=== PATIENT | male | born 1990 | race Caucasian/White ===

== ENCOUNTER 2019-01-13 12:05 | Emergency (ER) | payer OTHER ==
[~2019-01-13] VITALS: Ht 193 cm; Wt 95.3 kg
[2019-01-13] MEDS ORDERED: NKM (12:18)
--- NOTE | 2019-01-13 12:20 | NUR ---
ED Nurse Note: pt walked in to ED from work due to palpitation, dehydration and tingling sensation on limbs. per pt, had panic attack before but not bad as now. denies any stress or drug uses. per pt, had couple drinks last night. AAO x4. respirations even and non-labored noted. denies SI/HI. denies hearing voices or seeing things. skin warm to touch. no open wound noted. water provide and pt tolerated oral intake without any difficulty. will wait for the further order.
[2019-01-13 12:26] VITALS: BP 130/72
--- NOTE | 2019-01-13 12:27 | Emergency Room Report ---
History of Present Illness General Chief Complaint: General Complaint Source: Patient Present Illness HPI 28-year-old male presents to the emergency department complaining of feeling lightheaded/palpitations, paresthesias in the bilateral hands as well as rapid breathing acute onset. Patient also states that he has not been sleeping well lately and has been stressed at work. Patient reports history of anxiety however states that the symptoms are not aligned with his previous experiences where he states he has exacerbation of his IBS. He denies chest pain. Reports feeling short of breath. no significant PMHx. Denies night sweats or significant changes in weight. Denies fevers or chills. Denies motor weakness, AMS/LOC. Denies cardiac hx. reports Cardiac problems run in his family. reports he is generally very active. Denies drug use. Allergies: Coded Allergies: No Known Allergies (Unverified , 01/13/19) Patient History Past Medical History: see triage record Past Surgical History: none Pertinent Family History: none Reviewed Nursing Documentation: PMH: Agreed; PSxH: Agreed Nursing Documentation-PMH Past Medical History: No History, Except For Hx Gastrointestinal Problems: Yes - IBS History Of Psychiatric Problem: Yes - Anxiety Review of Systems All Other Systems: negative except mentioned in HPI Physical Exam Vital Signs Date Time Temp Pulse Resp B/P (MAP) Pulse Ox O2 Delivery O2 Flow Rate FiO2 01/13/19 12:15 96.4 85 20 130/72 (91) 99 Room Air Sp02 EP Interpretation: reviewed, normal General Appearance: no apparent distress, alert, GCS 15, non-toxic Head: normocephalic, atraumatic Eyes: bilateral eye normal inspection, bilateral eye PERRL ENT: hearing grossly normal, normal voice Neck: full range of motion Respiratory: chest non-tender, lungs clear, normal breath sounds, no respiratory distress, no wheezing, speaking full sentences Cardiovascular #1: regular rate, rhythm, no edema, normal capillary refill Musculoskeletal: back normal, gait/station normal, normal range of motion, non- tender Neurologic: alert, oriented x3, responsive, motor strength/tone normal, sensory intact, normal gait, speech normal, grossly normal Psychiatric: judgement/insight normal Skin: normal color, no rash, warm/dry, well hydrated Medical Decision Making PA Attestation Dr. Miguel Is my supervising Physician whom patient management has been discussed with. Diagnostic Impression: Primary Impression: Symptomatic bradycardia Additional Impression: Hyperventilation syndrome ER Course 28-year-old male presents to the emergency department complaining of feeling lightheaded/palpitations, paresthesias in the bilateral hands as well as rapid breathing acute onset. Patient also states that he has not been sleeping well lately and has been stressed at work. Patient reports history of anxiety however states that the symptoms are not aligned with his previous experiences where he states he has exacerbation of his IBS. He denies chest pain. Reports feeling short of breath. no significant PMHx. Denies night sweats or significant changes in weight. Denies fevers or chills. Denies motor weakness, AMS/LOC. Denies cardiac hx. reports Cardiac problems run in his family. reports he is generally very active. Denies drug use Ddx considered but are not limited to anxiety, FL, PE, asthma, thyroid storm, Arrhythmia, hyperthyroid, EPS Vital signs: are WNL, pt. is afebrile H&PE are most consistent with Symptomatic Bradycardia ORDERS: -EKG: Bradycardia 46bpm -CBC: wnl -CMP: wnl -TSH/FreeT3/T4: WNL -Troponin: 0.00 UDS: all Negative ED INTERVENTIONS: - 0.5 mg Ativan PO This patient was recommended to be admitted for symptomatic bradycardia however patient did not want to be admitted therefore he requested to be discharged AGAINST MEDICAL ADVICE. 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 DISPOSITION: AMA Per Pt. Request - At this time the patient is requesting to leave AGAINST MEDICAL ADVICE. I believe that this patient has the capacity to make decisions on his own. I discussed with the patient the risks of leaving AMA. Some of these risks include delay in diagnosis and treatment, as well as worsening of symptoms, organ damage, and permanent disability or even . After discussing these risks with the patient. He continues to express his want to leave AGAINST MEDICAL ADVICE. I encouraged the patient to return at any time, and that he will be welcome here in the emergency department to continue medical management. Labs Test 01/13/19 13:45 White Blood Count 7.0 K/UL (4.8-10.8) Red Blood Count 5.25 M/UL (4.70-6.10) Hemoglobin 15.2 G/DL (14.2-18.0) Hematocrit 44.5 % (42.0-52.0) Mean Corpuscular Volume 85 FL (80-99) Mean Corpuscular Hemoglobin 29.0 PG (27.0-31.0) Mean Corpuscular Hemoglobin Concent 34.2 G/DL (32.0-36.0) Red Cell Distribution Width 11.3 % (11.6-14.8) Platelet Count 186 K/UL (150-450) Mean Platelet Volume 9.3 FL (6.5-10.1) Neutrophils (%) (Auto) 74.3 % (45.0-75.0) Lymphocytes (%) (Auto) 16.9 % (20.0-45.0) Monocytes (%) (Auto) 7.9 % (1.0-10.0) Eosinophils (%) (Auto) 0.2 % (0.0-3.0) Basophils (%) (Auto) 0.7 % (0.0-2.0) Sodium Level 141 MMOL/L (136-145) Potassium Level 3.7 MMOL/L (3.5-5.1) Chloride Level 105 MMOL/L (98-107) Carbon Dioxide Level 31 MMOL/L (21-32) Anion Gap 5 mmol/L (5-15) Blood Urea Nitrogen 17 mg/dL (7-18) Creatinine 0.9 MG/DL (0.55-1.30) Estimat Glomerular Filtration Rate > 60 mL/min (>60) Glucose Level 84 MG/DL (74-106) Calcium Level 10.1 MG/DL (8.5-10.1) Total Bilirubin 1.9 MG/DL (0.2-1.0) Direct Bilirubin 0.3 MG/DL (0.0-0.3) Aspartate Amino Transf (AST/SGOT) 18 U/L (15-37) Alanine Aminotransferase (ALT/SGPT) 26 U/L (12-78) Alkaline Phosphatase 75 U/L (46-116) Total Creatine Kinase 123 U/L (26-308) Troponin I 0.000 ng/mL (0.000-0.056) Total Protein 7.8 G/DL (6.4-8.2) Albumin 4.5 G/DL (3.4-5.0) Globulin 3.3 g/dL Albumin/Globulin Ratio 1.4 (1.0-2.7) Thyroid Stimulating Hormone (TSH) 0.722 uiU/mL (0.358-3.740) Free Thyroxine 1.08 NG/DL (0.76-1.46) Free Triiodothyronine 3.1 pg/mL (2.3-4.2) Urine Opiates Screen Negative (NEGATIVE) Urine Barbiturates Screen Negative (NEGATIVE) Phencyclidine (PCP) Screen Negative (NEGATIVE) Urine Amphetamines Screen Negative (NEGATIVE) Urine Benzodiazepines Screen Negative (NEGATIVE) Urine Cocaine Screen Negative (NEGATIVE) Urine Marijuana (THC) Screen Negative (NEGATIVE) EKG Diagnostic Results EP Interpretation: Dr. Miguel Rate: bradycardiac - 46 Rhythm: NSR ST Segments: no acute changes ASA given to the pt in ED: No PA Scribe Text This Interpretation was scribed by VAUGHN Hernandez. Other X-Ray Diagnostic Results Other X-Ray Diagnostic Results : # of Views/Limited Vs Complete: 1 View Indication: Pain EP Interpretation: Yes PA Xray: Interpretation reviewed, by supervising MD, and agrees with findings. Interpretation: no dislocation, no soft tissue swelling, no fractures Impression: No acute disease Electronically Signed by: Onelia Hernandez PA-C Last Vital Signs Date Time Temp Pulse Resp B/P (MAP) Pulse Ox O2 Delivery O2 Flow Rate FiO2 01/13/19 12:15 96.4 85 20 130/72 (91) 99 Room Air Disposition: AGAINST MEDICAL ADVICE Condition: Unknown Patient Instructions: Bradycardia, Hyperventilation Additional Instructions: Take medications as directed. Follow up with a Practice Management Consultant and Primary Care Provider in 3-5 days, even if your symptoms have resolved. Return sooner to ED if new symptoms occur, or current symptoms become worse. - Please note that this Emergency Department Report was dictated using [employer] technology software, occasionally this can lead to erroneous entry secondary to interpretation by the dictation equipment. Onelia Hernandez Jan 13, 2019 12:27
[2019-01-13] MEDS ORDERED: LORazepam 0.5mg tab ORAL ONE (12:30)
[2019-01-13 14:01] LABS: BASOPHILS % (AUTO) 0.7 % (0.0-2.0); EOSINOPHILS % (AUTO) 0.2 % (0.0-3.0); HEMATOCRIT 44.5 % (42.0-52.0); HEMOGLOBIN 15.2 G/DL (14.2-18.0); LYMPHOCYTES % (AUTO) 16.9 % (20.0-45.0); MEAN CORPUSCULAR VOLUME 85 FL (80-99); MONOCYTES % (AUTO) 7.9 % (1.0-10.0); NEUTROPHILS % (AUTO) 74.3 % (45.0-75.0); PLATELET COUNT 186 K/UL (150-450); RED BLOOD COUNT 5.25 M/UL (4.70-6.10); RED CELL DISTRIBUTION WIDTH 11.3 % (11.6-14.8)
[2019-01-13 14:09] VITALS: BP 128/64
[2019-01-13 14:24] LABS: ANION GAP 5 mmol/L (5-15); BLOOD UREA NITROGEN 17 mg/dL (7-18); CALCIUM 10.1 MG/DL (8.5-10.1); CARBON DIOXIDE 31 MMOL/L (21-32); CHLORIDE 105 MMOL/L (98-107); CREATININE 0.9 MG/DL (0.55-1.30); POTASSIUM 3.7 MMOL/L (3.5-5.1); SODIUM 141 MMOL/L (136-145)
[2019-01-13 14:39] LABS: ALANINE AMINOTRANSFERASE 26 U/L (12-78); ALBUMIN 4.5 G/DL (3.4-5.0); ALBUMIN/GLOBULIN RATIO 1.4 (1.0-2.7); ALKALINE PHOSPHATASE 75 U/L (46-116); ASPARTATE AMINO TRANSFERASE 18 U/L (15-37); BILIRUBIN,TOTAL 1.9 MG/DL (0.2-1.0); CREATINE KINASE 123 U/L (26-308)
[2019-01-13 14:40] LABS: BILIRUBIN,DIRECT 0.3 MG/DL (0.0-0.3)
--- NOTE | 2019-01-13 14:45 | NUR ---
ED Nurse Note: pt informed that does not wants to be admitted to hospital. VAUGHN Hernandez notified.
--- NOTE | 2019-01-13 15:00 | NUR ---
AMA: SEE AMA FORM.
[2019-01-13 15:04] VITALS: BP 118/70
--- NOTE | 2019-01-13 15:05 | NUR ---
ER DISCHARGE NOTE: pt signed AMA. pt is aox4, on room air, with stable vital signs. pt was given dc instructions, pt was able to verbalize understanding, pt id band and iv site removed without complications. pt is able to ambulate with steady gait. pt took all belongings.
--- NOTE | 2019-01-13 15:37 | Diagnostic Imaging Report ---
Indication: Chest pain Technique: One view of the chest Comparison: none Findings: Lungs and pleural spaces are clear. The heart size is upper limits normal. Impression: Negative
--- NOTE | 2019-01-16 13:53 | Cardiology Report ---
APPROVED REPORT EKG Measurement Heart [id number] CT [id number] Sinus bradycardia with 1st degree AV block Otherwise normal ECG
== END 2019-01-13 15:06 | disposition left against medical advice (07) ==
LOC: EMR 12:36 → CANBEDREQ 14:41 → EMR 15:06
DX: R00.1 Bradycardia, unspecified (principal); R06.4 Hyperventilation; F41.9 Anxiety disorder, unspecified; R42 Dizziness and giddiness
CPT/HCPCS: 36415; 71045; 80053; 80307; 82248; 82550; 84439; 84443; 84481; 84484; 85025; 93005; 99283